=== PATIENT | female | born 1970 | race Caucasian/White ===

== ENCOUNTER 2016-11-07 23:03 | Emergency (ER) | payer OTHER ==
[~2016-11-07 23:03] MED LIST: A/B OTIC15 ML; ATIVAN1 MG PO; COUMADIN10 MG PO; HYDROCODONE/ACE1 TA2 PO; LORAZEPAM2 MG PO; NITROSTAT0.4 MG SL; NOR10T PO; NORCO1 TA2 PO; OMEPRAZOLE D/R20 M1 PO; PER5 PO; Q-PAP ES500 M1 PO
[2016-11-08 02:20] VITALS: BP 118/74
== END 2016-11-08 02:20 | disposition home or self-care (01) ==
LOC: ED 23:03
DX: R51 Headache (principal); R42 Dizziness and giddiness; R11.0 Nausea; H53.8 Other visual disturbances; F41.9 Anxiety disorder, unspecified; Z85.3 Personal history of malignant neoplasm of breast; Z90.11 Acquired absence of right breast and nipple; Z88.6 Allergy status to analgesic agent; Z79.891 Long term (current) use of opiate analgesic; Z79.1 Long term (current) use of non-steroidal anti-inflammatories (NSAID)
CPT/HCPCS: J2270; Q0162

== ENCOUNTER 2016-11-26 14:19 | Inpatient (IN) | payer OTHER ==
[~2016-11-26] VITALS: Ht 154.9 cm; Wt 103.2 kg
--- NOTE | 2016-11-26 14:33 | NUR ---
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 PT STATES SUBSTERNAL CHEST PAIN NON RADIATING WITH NUMBNESS TO L ARM AND L LEG. PT ABLE TO RAISE L ARM WITH NO DRIFT. CLINICAL PHARMACIST R>L. PT STATES SHE IS UNABLE RAISE L LEG. SPEECH CLEAR, NO FACIAL DROOP OR ASSYMETRY. SKIN WARM AND DRY. PT PLACED ON CARDIC MONTIOR, EKG COMPLETED AND REVIWED BY MD. PT GIVEN ASA AND NTG X [address] PRATER AT BEDSIDE.
--- NOTE | 2016-11-26 15:13 | NUR ---
WHILE CHANGING IV FOR CT CONTRAST INJECTION EMS IV WAS NOTED TO BE INFILTRATED. IV DC'D AND NEW IV STARTED. PT STATES THAT MEDICATION INJECTION WAS EFFECTIVE AND PAIN CURRENTLY DECREASING.
--- NOTE | 2016-11-26 15:20 | NUR ---
PT TAKEN TO CT VIA RYONY.
[2016-11-26 15:26] LABS: BASOPHIL % 0.5 % (0-2); PLATELET COUNT 259 x10^3mcL (130-400)
[2016-11-26 15:30] LABS: RED CELL DISTRIBUTION WIDTH 16.2 % (11.5-14.5)
--- NOTE | 2016-11-26 15:46 | NUR ---
PT HAD ANXIETY ATTACK IN CT, PT RETRUNED VIA GURYONY AND MEDICATION ADMINISTERED FOR ANXIETY, ORIGINAL IV SITE INFILTRATED
[2016-11-26 15:48] LABS: CALCIUM 8.4 mg/dL (8.5-10.1); CARBON DIOXIDE 25.8 mmol/L (21-32); CREATININE SERUM 1.1 mg/dL (0.6-1.0); POTASSIUM SERUM 3.6 mmol/L (3.5-5.1)
[2016-11-26 16:00] LABS: BILIRUBIN TOTAL 0.2 mg/dL (0.20-1.00); TOTAL PROTEIN, SERUM 6.8 g/dL (6.4-8.2)
[2016-11-26 16:01] LABS: ALBUMIN 3.1 g/dL (3.4-5.0)
--- NOTE | 2016-11-26 16:18 | NUR ---
TELEPHONE ORDERS FROM DR. LANGLEY
--- NOTE | 2016-11-26 16:40 | NUR ---
REPORT CALLED TO URVASHI RN, HE WILL ASSUME CARE PRIMARY RN POST TRANSFER.
[2016-11-26 16:50] VITALS: BP 114/54
[2016-11-26 17:05] VITALS: BP 114/54
--- NOTE | 2016-11-26 17:12 | NUR ---
RECEIVED PATIENT FROM ED VIA GUERYONY, PATIENT ALERT AND ORIENTED, TELE # 10 SR, IV ACCESS TO LAC WNL, C/O PAIN TO HEAD AND WILL MEDICATE ORDERED, ORIENTED PATIENT TO ROOM AND SURROUNDINGS, BED IN LOW POSITION, BED RAILS UP X 2, CALL LIGHT WITHIN REAACH, WILL ENDORSE CARE TO PRIMARY NURSE ARIANNE CARVAJAL
--- NOTE | 2016-11-26 17:30 | NUR ---
DR. ZHENG CAME TO SEE PATIENT. NEW ORDER WRITTEN.
--- NOTE | 2016-11-26 17:46 | NUR ---
C/O HEADACHE 08/27. TORADOL 30MG IVP PER ORDER. IVHL'D TO LAC. TELE#10 = SR; HR = 61. O2 SAT 98% ON RA. NO EDEMA. AMBULATORY. CALL LIGHT IN REACH.
--- NOTE | 2016-11-26 18:53 | NUR ---
STATED NO HEADACHE, NO CHEST PAIN NOW. TOELRATED DINNER WELL. ENDROSD ARE TO NOC NURSE.
--- NOTE | 2016-11-26 18:57 | NUR ---
PATIENT HAD ASPIRIN PO GIVEN BY EMT. NO ALLEGIC REACTION SEEN.
--- NOTE | 2016-11-26 19:46 | NUR ---
RECEIVED PATIENT IN BED AWAKE, ALERT AND ORIENTED WITH NO C/O CHEST DISOPCMFORT AT THIS TIME. TELE# 10,NSR ON MONITOR. SCD TO BLE IN PLACE. BREATHING EASY AND NONLABOR SATTING AT 98% RA. IV TO LAC INTACT AND INFUSING WELL. WILL CONTINUE TO MONITOR. CALL LIGHT WITHIN REACH.
[2016-11-26 21:04] VITALS: BP 112/64
--- NOTE | 2016-11-26 21:22 | NUR ---
C/O HEADACHE AND ANXIETY ATIVAN PO GIVEN AND ULTRAM 50MG PO PRESCRIBED. WILL CONTINUE TO MONITOR.
--- NOTE | 2016-11-26 22:52 | NUR ---
SLEEPING THIS TIME AFTER PAIN MEDS WAS GIVEN. WILL CONTINUE TO MONITOR.
--- NOTE | 2016-11-27 05:29 | NUR ---
SLEPT FAIRLY AFTER SLEEPING PILL GIVEN PER PATIENT REQUEST. C/O HEADACE X1 THROUGHOUT THE SHIFT AND MEDCIATED PRESCRIBED. ALL NEEDS ATTENDED.
[2016-11-27 05:30] VITALS: BP 110/72
--- NOTE | 2016-11-27 07:15 | NUR ---
RECEIVED PATIENT ALERT/ORIETNED X3, BUT C/O HEADACHE ON 08/27. ULTRAN 50MG PO GIVEN AT 0635 BY [facility] NURSE.
--- NOTE | 2016-11-27 08:12 | NUR ---
FINISHED 50% OF BREAKFAST. C/O HEADACHE AND NAUSEA. NO VOMITING NOTED. ZOFREN 4MG IVP GIVEN. TELE#10 = SR; HR =64; C/O CHEST PAIN ON 07/[address] ZHENG SAW PATIENT. ORDER OF NORCO PO X1 IN WRITTEN. BREATHING SOUND CLEASR OMAR. O2 SAT 99% ON RA. IV TO LAC PATENT. HL'D PER ORDER. CALL LIGHT IN REACH.
[2016-11-27 08:35] LABS: CALCIUM 8.8 mg/dL (8.5-10.1); CARBON DIOXIDE 28.1 mmol/L (21-32); CHLORIDE SERUM 108 mmol/L (98-107); CREATININE SERUM 0.9 mg/dL (0.6-1.0); GFR1 > 60 mL/min; GLUCOSE SERUM 105 mg/dL (74-106); POTASSIUM SERUM 4.6 mmol/L (3.5-5.1); SODIUM SERUM 143 mmol/L (136-145)
--- NOTE | 2016-11-27 08:45 | NUR ---
C/O HEADACH AND CHEST PAIN AND BODY PAIN ON 08/27. ANXIETY. NORCO 5/325 PO GIVEN PER ORDER.
[2016-11-27 08:57] VITALS: BP 108/52
--- NOTE | 2016-11-27 09:43 | NUR ---
ANXIETY. PATIENT WANTED " NORCO IVP". ATIVAN 0.5MG PO GIVEN.
--- NOTE | 2016-11-27 10:45 | NUR ---
CALM DOWN. AGREED TO GO HOME AFTER LUNCH.
[2016-11-27 12:09] VITALS: BP 108/52
--- NOTE | 2016-11-27 12:15 | NUR ---
C/O HEADCHE 0N /10. ULTRAM 50MG PO GIVEN.
--- NOTE | 2016-11-27 13:45 | NUR ---
TOLERATED LUNCH WELL. D/C TO HOME PER ORDER. INSTRUCTION GIVEN BY WEI LANDIN. IV D/C'D BY WEI LANDIN. OVER NEEDLE CATH INTACT. CONDITION STABLE.
== END 2016-11-27 14:28 | disposition home or self-care (01) | DRG 203 ==
LOC: ED 14:19 → DU 16:15
PROVIDERS: Emergency Medicine; ADMIT Internal Medicine Pulmonary Disease
DX: M94.0 Chondrocostal junction syndrome [Tietze] (principal); E66.01 Morbid (severe) obesity due to excess calories; J20.9 Acute bronchitis, unspecified; F17.210 Nicotine dependence, cigarettes, uncomplicated; Z85.3 Personal history of malignant neoplasm of breast; R07.89 Other chest pain
CPT/HCPCS: 83880; 85378; J1885; J2060; J2405; J3010; Q9967

== ENCOUNTER 2017-02-21 10:44 | Inpatient (IN) | payer OTHER ==
[~2017-02-21] VITALS: Ht 154.9 cm; Wt 89.5 kg
--- NOTE | 2017-02-21 11:06 | NUR ---
SEEN BY DR NICOLAS, PT C/O BURNING SENSATION TYPE OF PAIN FROM RIGHT KNEE UP THE RIGHT THIGH, BACK AND RIGHT UPPER BACK. LAST DIAGNOSED WITH BREAST CANCER 2013. RIGHT BREAST MASTECTOMY AND LYMPH NODE SURGERY 2014 AT [facility], RADIATION COMPLETED IN FEBRUARY 2016.
[2017-02-21 11:46] LABS: BASOPHIL % 0.7 % (0-2); PLATELET COUNT 282 x10^3mcL (130-400)
[2017-02-21 11:48] LABS: RED CELL DISTRIBUTION WIDTH 15.1 % (11.5-14.5)
[2017-02-21 11:55] LABS: CALCIUM 8.8 mg/dL (8.5-10.1); CARBON DIOXIDE 25.4 mmol/L (21-32); CHLORIDE SERUM 106 mmol/L (98-107); CREATININE SERUM 0.8 mg/dL (0.6-1.0); GFR1 > 60 mL/min; GLUCOSE SERUM 118 mg/dL (74-106); POTASSIUM SERUM 3.9 mmol/L (3.5-5.1); SODIUM SERUM 142 mmol/L (136-145)
--- NOTE | 2017-02-21 11:58 | NUR ---
TO CT VIA [facility]
[2017-02-21 12:00] LABS: ALBUMIN 3.5 g/dL (3.4-5.0); ALKALINE PHOSPHATASE 99 U/L (46-116); ALT/SGPT 24 U/L (14-59); AMYLASE 35 U/L (25-115); AST/SGOT 15 U/L (15-37); BILIRUBIN TOTAL 0.3 mg/dL (0.20-1.00); LIPASE 113 IU/L (73-393); TOTAL PROTEIN, SERUM 7.5 g/dL (6.4-8.2)
--- NOTE | 2017-02-21 13:26 | NUR ---
I RECEIVED ADMISSION ORDERS FRO DR BRIGGS FOR ADMIT TO [facility] ADMIT DX SEVERE BACK SCIATICA PAIN. PT IS AWARE OF AND AGREES
--- NOTE | 2017-02-21 13:36 | NUR ---
PT MEDICATED PER ORDERS WITH DILAUDID 1 MG IVP AND ZOFRAN 4 MG SIVP. PT WILL BE MONITORED FOR PAIN LEVEL 3/10 FOR EFFECTIVENESS
--- NOTE | 2017-02-21 13:36 | NUR ---
I EXPLAINED TO PT REGARDING THE NEED FOR MRSA SHE AGREED, SPECIMEN COLLECTED PT TOLERATED WELL, SPECIMEN SENT TO LAB.
--- NOTE | 2017-02-21 14:12 | NUR ---
REPORT TO ERIK RN, [id number]. PT AWARE OF ADMISSION AND VERBALIZED UNDERSTANDING PLAN OF CARE
--- NOTE | 2017-02-21 14:30 | NUR ---
PT RECEIVED BY PRIMARY NURSE ERIK FROM ED. PT CAME IN DUE TO RLE PAIN FOR THE PAST 3 WEEKS, WORSE LAST NIGHT. AAOX4. NO SOB NOTED. DENIES CHEST PAIN/PRESSURE. C/O 10/10 RLE PAIN DESCRIBED BURNING, WORSE ON MOVEMENT. NO EDEMA NOTED. SIDE RAILS UPX2. CALL LIGHT ON REACH. PRIMARY NURSE ERIK AT BEDSIDE FOR CONTINUITY OF CARE
[2017-02-21 14:39] VITALS: BP 92/50
[2017-02-21 14:42] VITALS: Ht 154.9 cm; Wt 89.5 kg
--- NOTE | 2017-02-21 14:45 | NUR ---
ASSUMED PT. CARE,RECIEVED PT. AWAKE ALERT AND ORIENTED C/O RT. THIGH PAIN STATED PT. HAS SCIATICA.S/P RT. BREAST MASTECTOMY .NO B/P OR BLOOD DRAWN IN RT. HAND.ORIENTED TO ROOM AND SURROUNDINGS CALL LIGHT W/ IN REACH.NO ACUTE DISTRESS NOTED. LEFT WRIST IV HL PATENT.
--- NOTE | 2017-02-21 15:28 | NUR ---
PT. C/O PAIN IN RT. LEG RADIATING TO UPPER THIGH AND HIPS.MEDICATED FOR PAIN PO ORDERED PERCOCET.MADE PT. COMFORTABLE IN BED.CALL LIGHT W/ IN REACH
[2017-02-21 17:34] VITALS: BP 103/52
--- NOTE | 2017-02-21 18:04 | NUR ---
PT. C/O PAIN IN RT. LEG RADIATING TO UPPER THIGHT AND HIPS.W/ SCALE OF 6/10 MEDICATED W/ DILAUDID ORDERED.MADE PT. COMFORTABLE IN BED. CALL LIGHT W/ IN REACH.
--- NOTE | 2017-02-21 19:38 | NUR ---
RECEIVED PT IN BED AAOX4 , PT SPEAKS WELSH ONLY ,DENY PAIN AT THE MOMENT , LUNG SOUNDS CTA , ABD SOFT BS ACTIVE X4, HL INTACT INFUSING WELL .WILL CON'T TO MONITOR PT CLOSELY.
[2017-02-21 21:10] VITALS: BP 97/61
--- NOTE | 2017-02-21 23:01 | NUR ---
PT C/O RIGHT LEG PAIN /, DILAUDID 1MG GIVEN IVP , BP 101/64 HR 67, WILL CON'T TO MONITOR PT CLOSELY.
--- NOTE | 2017-02-22 01:43 | NUR ---
PT C/O HEADACHE TYLENOL GIVEN .
--- NOTE | 2017-02-22 01:51 | NUR ---
PT REFUSED TYLENOL STATED TYLENOL GIVES ME DIARRHEA , REQUESTED FOR PERCOCET .
--- NOTE | 2017-02-22 03:05 | NUR ---
PT C/O RIGHT LEG PAIN 10/10 DILAUDID 1MG GIVEN IVP V/S 105/66 HR 66. WILL CON'T TO MONITOR PT .
[2017-02-22 04:40] VITALS: BP 101/54
--- NOTE | 2017-02-22 06:18 | NUR ---
PT'S IN BED WITH EYES CLOSED, HL INTACT INFUSING WELL , ALL DUE MEDS GIVEN NO REACTION NOTED.
--- NOTE | 2017-02-22 06:34 | NUR ---
PT C/O SEVERE RIGHT THIGH PAIN 01/27 BP 111/ WILL MEDICATE PT WITH DILAUDID IVP.
--- NOTE | 2017-02-22 07:55 | NUR ---
AWAKE,ALERT AND ORIENTED DENIES ANY PAIN AT THIS TIME,CALL LIGHT W/ IN REACH NO ACUTE DISTRESS NOTED. ABLE TO AMBULATE IN THE BATHROOM AND VOIDING BUT STATED DURING AMBULATION SHE FEELS PAIN AND BURNING IN HER RT. THIGH.PT. RECIEVED PAIN MEDS OF DILAUDID ALREADY ORDERED.WILL CONT. PLAN OF CARE.
[2017-02-22 08:15] VITALS: BP 100/52
--- NOTE | 2017-02-22 09:00 | NUR ---
DR. CASON WAS HERE AND SEEN THE PT PT. AND W/ ORDERS RECIEVED OK PT. TO GO HOME TODAY. PT. MAD AWARE AND AWAITING FOR RIDE.
[2017-02-22 09:46] VITALS: BP 100/52
--- NOTE | 2017-02-22 11:20 | NUR ---
PT. WENT HOME W/ STABLE CONDITION PER W/C ACC. W/ HER FAMILY. DISCHARGED INSTRUCTIONS AND PRESCRIPTION GIVEN AND DISCUSSED TO PT. AND VERBALIZED UNDERSTANDING OF INSTRUCTIONS GIVEN NO ACUTE DISTRESS NOTED.ESCORTED BY TAMMY IN THE LOBBY.
== END 2017-02-22 11:20 | disposition home or self-care (01) | DRG 351 ==
LOC: ED 10:44 → MU 13:28
PROVIDERS: Emergency Medicine; ADMIT Internal Medicine Pulmonary Disease
DX: M79.604 Pain in right leg (principal); Z85.3 Personal history of malignant neoplasm of breast; Z90.11 Acquired absence of right breast and nipple; Z88.0 Allergy status to penicillin; Z79.899 Other long term (current) drug therapy
CPT/HCPCS: 83880; J1170; J2405; J3010; J7512; Q0092

== ENCOUNTER 2017-03-19 18:31 | Emergency (ER) | payer OTHER ==
[~2017-03-19] VITALS: Ht 162.6 cm; Wt 85.9 kg
[2017-03-19 21:37] LABS: microscopic required? YES; urine erythrocyte TRACE (NEGATIVE)
[2017-03-20 01:21] VITALS: BP 135/85
== END 2017-03-20 01:21 | disposition home or self-care (01) ==
LOC: ED 18:31
PROVIDERS: Emergency Medicine
DX: N39.0 Urinary tract infection, site not specified (principal); B37.3 Candidiasis of vulva and vagina; F11.20 Opioid dependence, uncomplicated; Z88.6 Allergy status to analgesic agent
CPT/HCPCS: J1885

== ENCOUNTER 2017-03-22 12:00 | Emergency (ER) | payer OTHER ==
[2017-03-22 14:06] LABS: BASOPHIL % 0.7 % (0-2); PLATELET COUNT 289 x10^3mcL (130-400)
[2017-03-22 14:13] LABS: CALCIUM 9.2 mg/dL (8.5-10.1); CARBON DIOXIDE 25.5 mmol/L (21-32); CHLORIDE SERUM 108 mmol/L (98-107); CREATININE SERUM 0.8 mg/dL (0.6-1.0); GFR1 > 60 mL/min; GLUCOSE SERUM 89 mg/dL (74-106); SODIUM SERUM 142 mmol/L (136-145)
[2017-03-22 14:30] LABS: RED CELL DISTRIBUTION WIDTH 15.3 % (11.5-14.5)
[2017-03-22 15:19] VITALS: BP 115/86
[2017-03-22 16:45] LABS: UA SPECIFIC GRAVITY <=1.005 (1.005-1.035); microscopic required? YES; urine erythrocyte TRACE (NEGATIVE)
== END 2017-03-22 16:46 | disposition home or self-care (01) ==
LOC: ED 12:00
PROVIDERS: Emergency Medicine Emergency Medical Services
DX: B37.3 Candidiasis of vulva and vagina (principal); G89.29 Other chronic pain; R10.30 Lower abdominal pain, unspecified; Z85.3 Personal history of malignant neoplasm of breast; Z88.6 Allergy status to analgesic agent
CPT/HCPCS: 36415

== ENCOUNTER 2017-07-03 17:35 | Emergency (ER) | payer OTHER ==
[~2017-07-03] VITALS: Ht 154.9 cm; Wt 92.1 kg
[2017-07-03 17:49] VITALS: Ht 154.9 cm; Wt 92.1 kg
[2017-07-03 20:31] VITALS: BP 129/81
== END 2017-07-03 20:31 | disposition home or self-care (01) ==
LOC: ED 17:35
DX: R10.13 Epigastric pain (principal); R11.2 Nausea with vomiting, unspecified; R19.7 Diarrhea, unspecified; R51 Headache; R50.9 Fever, unspecified; M79.1 Myalgia
CPT/HCPCS: J1885; Q0162

== ENCOUNTER 2017-10-09 15:54 | Emergency (ER) | payer OTHER ==
[~2017-10-09] VITALS: Ht 157.5 cm; Wt 90.7 kg
[2017-10-09 16:09] VITALS: Ht 157.5 cm; Wt 90.7 kg
[2017-10-09 18:30] VITALS: BP 130/78
== END 2017-10-09 18:40 | disposition home or self-care (01) ==
LOC: ED 15:54
DX: I89.0 Lymphedema, not elsewhere classified (principal); Z85.3 Personal history of malignant neoplasm of breast; Z90.10 Acquired absence of unspecified breast and nipple
CPT/HCPCS: J3010

== ENCOUNTER 2017-11-12 16:45 | Emergency (ER) | payer OTHER ==
[~2017-11-12] VITALS: Ht 152.4 cm; Wt 90.7 kg
[2017-11-12 16:49] VITALS: Ht 152.4 cm; Wt 90.7 kg
[2017-11-12 20:50] LABS: CALCIUM 8.3 mg/dL (8.5-10.1); CARBON DIOXIDE 27.4 mmol/L (21-32); CHLORIDE SERUM 105 mmol/L (98-107); CREATININE SERUM 0.6 mg/dL (0.6-1.0); GFR1 > 60 mL/min; GLUCOSE SERUM 91 mg/dL (74-106); POTASSIUM SERUM 3.9 mmol/L (3.5-5.1); SODIUM SERUM 141 mmol/L (136-145)
[2017-11-12 20:51] LABS: BASOPHIL % 0.5 % (0-2); PLATELET COUNT 289 x10^3mcL (130-400)
[2017-11-12 20:53] LABS: RED CELL DISTRIBUTION WIDTH 14.9 % (11.5-14.5)
[2017-11-12 21:28] VITALS: BP 132/84
== END 2017-11-12 21:29 | disposition home or self-care (01) ==
LOC: ED 16:45
PROVIDERS: Emergency Medicine
DX: R07.89 Other chest pain (principal); M25.512 Pain in left shoulder; Z76.5 Malingerer [conscious simulation]; Z88.6 Allergy status to analgesic agent
CPT/HCPCS: 36415; J1885; Q0092

== ENCOUNTER 2018-05-05 18:38 | Emergency (ER) | payer OTHER ==
[~2018-05-05] VITALS: Ht 154.9 cm; Wt 89.8 kg
[2018-05-05 19:02] VITALS: Ht 154.9 cm; Wt 89.8 kg
[2018-05-05 19:43] LABS: BASOPHIL % 1.2 % (0-2); PLATELET COUNT 284 x10^3mcL (130-400); RED CELL DISTRIBUTION WIDTH 15.8 % (11.5-14.5)
[2018-05-05 19:49] LABS: CALCIUM 8.5 mg/dL (8.5-10.1); CARBON DIOXIDE 25.5 mmol/L (21-32); CHLORIDE SERUM 106 mmol/L (98-107); CREATININE SERUM 0.7 mg/dL (0.6-1.0); GFR1 > 60 mL/min; GLUCOSE SERUM 125 mg/dL (74-106); POTASSIUM SERUM 3.7 mmol/L (3.5-5.1); SODIUM SERUM 142 mmol/L (136-145)
[2018-05-05 19:53] LABS: ALBUMIN 3.4 g/dL (3.4-5.0); ALKALINE PHOSPHATASE 86 U/L (46-116); ALT/SGPT 12 U/L (14-59); AMYLASE 55 U/L (25-115); AST/SGOT 15 U/L (15-37); BILIRUBIN TOTAL 0.13 mg/dL (0.20-1.00); LIPASE 113 IU/L (73-393); TOTAL PROTEIN, SERUM 7.1 g/dL (6.4-8.2)
[2018-05-05 22:20] VITALS: BP 132/66
== END 2018-05-05 22:20 | disposition home or self-care (01) ==
LOC: ED 18:38
PROVIDERS: Emergency Medicine
DX: R10.13 Epigastric pain (principal); K92.0 Hematemesis; Z85.3 Personal history of malignant neoplasm of breast; Z98.890 Other specified postprocedural states; Z88.6 Allergy status to analgesic agent
CPT/HCPCS: J1885; J3010; J3490; Q0092

== ENCOUNTER 2019-02-09 12:34 | Emergency (ER) | payer OTHER ==
[~2019-02-09] VITALS: Ht 162.6 cm; Wt 93.0 kg
[2019-02-09 12:47] VITALS: Ht 162.6 cm; Wt 93.0 kg
[2019-02-09 18:17] LABS: CALCIUM 8.6 mg/dL (8.5-10.1); CARBON DIOXIDE 28.4 mmol/L (21-32); CHLORIDE SERUM 105 mmol/L (98-107); CREATININE SERUM 0.8 mg/dL (0.6-1.0); GFR1 > 60 mL/min; GLUCOSE SERUM 134 mg/dL (74-106); POTASSIUM SERUM 4.1 mmol/L (3.5-5.1); SODIUM SERUM 141 mmol/L (136-145)
[2019-02-09 18:19] LABS: BASOPHIL % 0.6 % (0-2); PLATELET COUNT 293 x10^3mcL (130-400)
[2019-02-09 18:22] LABS: ALBUMIN 3.4 g/dL (3.4-5.0); ALKALINE PHOSPHATASE 91 U/L (46-116); ALT/SGPT 21 U/L (14-59); AST/SGOT 8 U/L (15-37); BILIRUBIN TOTAL 0.2 mg/dL (0.20-1.00); TOTAL PROTEIN, SERUM 7.3 g/dL (6.4-8.2)
[2019-02-09 18:26] LABS: RED CELL DISTRIBUTION WIDTH 14.8 % (11.5-14.5)
[2019-02-09 20:30] VITALS: BP 116/74
== END 2019-02-09 20:30 | disposition home or self-care (01) ==
LOC: ED 12:34
PROVIDERS: Emergency Medicine
DX: M54.41 Lumbago with sciatica, right side (principal)
CPT/HCPCS: J1885; J2270; J2405

== ENCOUNTER 2020-05-28 15:31 | Inpatient (IN) | payer OTHER, SELFPAY ==
[~2020-05-28] VITALS: Ht 172.7 cm; Wt 95.3 kg
[2020-05-28 15:53] VITALS: Ht 172.7 cm; Wt 95.3 kg
--- NOTE | 2020-05-28 15:55 | NUR ---
PT BIB [facility] C/O MIDSTERNAL CHEST PAIN, SOB AND INTERMITENT NAUSEA X 45 MINUTES. MEDIC REPORTS PT "WAS SITTING IN BED WHEN SHE STARTED TO FEEL THE PAIN". MEDIC DENIES ANY PT CARDIAC HX. PT HX OF RIGHT MASTECTOMY X 4 YEARS AGO. MEDIC REPORTS GIVING 3 NITRO SUBLINGUAL LINE RIDER. 20G IV ESTABLISHED TO L HAND BY MEDIC LINE RIDER. ON ARRIVAL, PT AAOX4, RESP E/U, SPEAKING IN FULL, CLEAR SENTENCES. PT O2SAT 97% ON ROOM AIR, NO COUGHS NOTED. PT REPORTS INTERMITENT NAUSEA, NO VOMITING NOTED. PT STATES MIDSTERNAL CHEST PAIN 8/10 AT THIS TIME. PT GOWNED AND PLACED ON FULL CM, NSR NOTED. SAFETY PRECAUTIONS IN PLACE. AWAITING MSE BY .
--- NOTE | 2020-05-28 16:27 | NUR ---
XRAY AT BEDSIDE
[2020-05-28 16:36] LABS: BASOPHIL % 1.5 % (0.2-1.3); PLATELET COUNT 303 x10^3mcL (179-408)
[2020-05-28 16:44] LABS: RED CELL DISTRIBUTION WIDTH 14.9 % (12.3-17.7)
[2020-05-28 16:51] LABS: CALCIUM 9.1 mg/dL (8.5-10.1); CARBON DIOXIDE 27.7 mmol/L (21-32); CHLORIDE SERUM 108 mmol/L (98-107); CREATININE SERUM 0.9 mg/dL (0.6-1.0); GFR1 > 60 mL/min; GLUCOSE SERUM 133 mg/dL (74-106); POTASSIUM SERUM 3.8 mmol/L (3.5-5.1); SODIUM SERUM 144 mmol/L (136-145)
[2020-05-28 16:55] LABS: ALKALINE PHOSPHATASE 97 U/L (46-116); ALT/SGPT 25 U/L (14-59); AST/SGOT 12 U/L (15-37); BILIRUBIN TOTAL 0.15 mg/dL (0.20-1.00); HDL CHOLESTEROL 45 mg/dL (40-60); LIPASE 161 IU/L (73-393); TOTAL PROTEIN, SERUM 6.9 g/dL (6.4-8.2)
[2020-05-28 16:56] LABS: ALBUMIN 3.2 g/dL (3.4-5.0); CHOLESTEROL 217 mg/dL (<200)
--- NOTE | 2020-05-28 17:21 | NUR ---
ATTEMPTED TO ASSIST PT TO RESTROOM. PT NOTED DIZZY AND UNABLE TO AMBULATE TO RESTROOM. PT RETURNED TO ER GURSTURKIE. VITAL SIGNS STABLE. SIDE RAILS UP X 2, ER GURNEY IN LOWEST, LOCKED POSITION. PT IN VIEW OF NURSING STATION
--- NOTE | 2020-05-28 17:42 | NUR ---
PER DR ZUÑIGA, STRAIGHT CATH TO OBTAIN URINE SAMPLE
[2020-05-28 18:15] LABS: microscopic required? NO
--- NOTE | 2020-05-28 18:45 | NUR ---
ATTEMPTED TO ESTABLISH SECOND IV FOR CT CONTRAST. UNABLE TO ESTABLISH IV ACCESS. WEI REBOLLEDO TO ATTEMPT SECOND IV START. ONCOMING RN SHUN MADE AWARE.
--- NOTE | 2020-05-28 18:45 | NUR ---
PT REPORTS RIGHT SIDED CHEST AND NECK PAIN AT THIS TIME. PT REPORTS GENERALIZED HEADACHE AND DIZZINESS. PT AAOX4, SPEAKING IN FULL, CLEAR SENTENCES. RESP E/U, O2SAT 97% ON ROOM AIR. MD MADE AWARE. SAFETY PRECAUTIONS IN PLACE. WILL CONTINUE TO MONITOR
[2020-05-28 18:46] LABS: UA SPECIFIC GRAVITY 1.025 (1.005-1.035); urine erythrocyte NEGATIVE (NEGATIVE)
--- NOTE | 2020-05-28 18:50 | NUR ---
DR ZUÑIGA MADE AWARE OF PT BLOOD PRESSURE AND CHEST PAIN. PER DR ZUÑIGA, REMOVE TOPICAL NITRO. NITRO REMOVED AT THIS TIME. WILL CONTINUE TO MONITOR
[2020-05-28 18:57] LABS: AMPHETAMINE QUAL UR NONE DETECTED (See below)
--- NOTE | 2020-05-28 19:24 | NUR ---
REPORT GIVEN TO WEI HOFFMANN. HE WILL ASSUME FURTHER CARE OF THIS PT
--- NOTE | 2020-05-28 19:41 | NUR ---
PT IN [facility] [place] RESTING, C/O L CHEST/SHOULDER PAIN 12/28. PT AAOX4, RESP E/U, SEEN RESTING IN [facility] [place]
--- NOTE | 2020-05-28 20:46 | NUR ---
PT BACK FROM CT
--- NOTE | 2020-05-28 20:53 | NUR ---
PT C/O CP 12/28. PAGED DR MORGAN FOR ORDERS, AWAITING ORDERS--WILL MEDICATE ORDERED
--- NOTE | 2020-05-28 23:45 | NUR ---
REPORT GIVEN TO IZABELLA TO ASSUME CARE OF PT AT THIS TIME
--- NOTE | 2020-05-29 00:02 | NUR ---
REPORT REC'D FROM ER NURSE.
[2020-05-29 01:26] VITALS: BP 108/68
--- NOTE | 2020-05-29 02:18 | NUR ---
REC'D PT FROM ED ACCOMPANIED BY NURSE VIA LUIS ALBERTO. C/O LEFT ARM PAIN WITH MOVEMENT 6/10 ON PAIN SCALE. RESP EVEN AND UNLABORED. ON ROOM AIR 100%. AA0X4. HX/O RIGHT BREAST CANCER WITH RIGHT MASTECTOMY. AMBULATED TO BED WITH ASSISTANCE OF TWO PERSON SECONDARY TO DIZZINESS. MEDICATED WITH PEROCECT 10 FOR LEFT ARM PAIN. RESTING IN BED WITH CALL WITHIN REACH.
[2020-05-29 05:09] VITALS: BP 101/67
--- NOTE | 2020-05-29 06:58 | NUR ---
PT C/O LEFT ARM PAIN, CALLED AND SPOKE WITH DR. HALE AND REC'D NEW ORDER FOR TORADOL. REC'D CALL FROM PHARMACY WANTING TO KNOW WHAT KIND OF REACTION SHE HAS TO ASA . PT IS UNABLE TO TELL ME SHE STATE'S IT'S SOMETHING TO DO WITH HER BREAST CANCER. PILATES COORDINATOR CALL SISTER BETY AND SHE DIDN'T KNOW. WILL PASS IT ON TOONCOMING NURSE.
--- NOTE | 2020-05-29 07:40 | NUR ---
RECEIVED PT. IN BED A/A/O X3. NO SOB, NO N/V NOTED. PT. DENIES ANY PAIN AT THIS TIME. IV SITE #1 NOTED TO L AC. IV SITE #2 NOTED TO L HAND. PT. IS ON DROPLET ISOLATION FOR SUSPECTED COVID-19 INFECTION. BED IN LOW POS., CALL LIGHT WITHIN REACH. SIDE RAILS UP X3.
[2020-05-29 07:57] LABS: BASOPHIL % 1.2 % (0.2-1.3); PLATELET COUNT 312 x10^3mcL (179-408)
[2020-05-29 08:29] LABS: RED CELL DISTRIBUTION WIDTH 15.5 % (12.3-17.7)
[2020-05-29 08:35] VITALS: BP 110/51
[2020-05-29 08:59] LABS: ALKALINE PHOSPHATASE 90 U/L (46-116); ALT/SGPT 29 U/L (14-59); AST/SGOT 14 U/L (15-37); CALCIUM 8.8 mg/dL (8.5-10.1); CARBON DIOXIDE 22.8 mmol/L (21-32); CHLORIDE SERUM 106 mmol/L (98-107); GFR1 > 60 mL/min; GLUCOSE SERUM 185 mg/dL (74-106); HDL CHOLESTEROL 44 mg/dL (40-60); MAGNESIUM 1.9 mg/dL (1.8-2.4); PHOSPHOROUS 3.6 mg/dL (2.5-4.9); POTASSIUM SERUM 3.5 mmol/L (3.5-5.1); SODIUM SERUM 142 mmol/L (136-145); TOTAL PROTEIN, SERUM 6.6 g/dL (6.4-8.2); TRIGLYCERIDES 115 mg/dL (<150)
[2020-05-29 09:05] LABS: CHOLESTEROL 204 mg/dL (<200); CHOLESTEROL/HDL RATIO 4.6
[2020-05-29] MEDS ORDERED: BAY PO (11:09)
[2020-05-29 13:14] VITALS: BP 114/72
--- NOTE | 2020-05-29 14:56 | NUR ---
ECHO NOTE: PER RN WAITING ON ECHO FOR DISCHARGE. S/W DR TURNER DUE TO R/O STATUS NO ECHO NEEDED PRIOR TO DISCH.
[2020-05-29 17:31] VITALS: BP 117/87
--- NOTE | 2020-05-29 18:10 | NUR ---
DC HOME INSTRUCTIONS GIVEN. ALL QUESTIONS AND CONCERNS ADDRESSED. I, MYSELF TRANSLATED FOR PATIENT WITH DC INSTRUCTIONS. IV SITE #1 TO LEFT AC AND #2 TO LEFT HAND REMOVED INTACT. TELE #33 REMOVED AND RETURNED TO TELE MONITOR STATION. PATIENT VERBALIZED UNDERSTANDING OF INSTRUCTIONS.
--- NOTE | 2020-05-29 18:32 | NUR ---
PATIENT SISTER ARRIVED IN MAIN LOBBY. PATIENT IS BEING DISCHARGED IN STABLE CONDITION VIA WHEELCHAIR. ALL BELONGINGS SENT HOME WITH PATIENT UPON DISCHARGE.
--- NOTE | 2020-05-30 07:15 | NUR ---
CANCELLATION REQUESTED FOR ECHOCARDIOGRAM
== END 2020-05-29 18:47 | disposition home or self-care (01) | DRG 203 ==
LOC: ED 15:31 → DU 19:24
PROVIDERS: ADMIT Hospitalist; ATTEND Emergency Medicine
DX: R07.89 Other chest pain (principal); E46 Unspecified protein-calorie malnutrition; E66.9 Obesity, unspecified; Z20.822 Contact with and (suspected) exposure to COVID-19; Z88.6 Allergy status to analgesic agent; Z85.3 Personal history of malignant neoplasm of breast; Z68.31 Body mass index [BMI] 31.0-31.9, adult; Z71.3 Dietary counseling and surveillance; Z83.3 Family history of diabetes mellitus; Z80.0 Family history of malignant neoplasm of digestive organs
CPT/HCPCS: 83880; 85378; C9113; G0378; G0480; J1650; J1885; J2405; J7030; Q9967; U0003